=== PATIENT | male | born 1930 | race Caucasian/White ===

== ENCOUNTER 2018-09-13 18:29 | Observation (INO) | payer BC ==
--- NOTE | 2018-09-13 19:17 | PDOC ---
History of Present Illness - General Chief Complaint: Lightheaded Stated Complaint: SENT BY PCP Time Seen by Provider: 09/13/18 18:49 History Source: Patient, Primary Care Provider Exam Limitations: No Limitations - History of Present Illness Initial Comments: 09/13/18 19:12 88M with a PMH of a-fib on coumadin who presents to the ER sent by his on site coordinator, Drs. Mcghee and Kaz, after his holter monitor showed 12 seconds of v-tach. The patient states that he was otherwise in his normal state of health and sitting outside when he felt "a blackness" take over. This happened for "a few seconds" and then went away. He denies feeling palpitations , CP, SOB, nausea, vomiting, diaphoresis during or after this episode. He denies any acute complaints currently. Past History - Past Medical History Allergies/Adverse Reactions: Allergies Allergy/AdvReac Type Severity Reaction Status Date / Time No Known Allergies Allergy Verified 09/13/18 18:37 Home Medications: Ambulatory Orders Warfarin Sodium [Coumadin] 1 mg PO DAILY 12/13/13 Alprazolam [Xanax] 0.25 mg PO BID 09/13/18 Azithromycin [Zithromax -] 250 mg PO DAILY 09/13/18 Metoprolol Succinate [Toprol Xl] 25 mg PO DAILY 09/13/18 Venlafaxine HCl ER [Effexor Xr -] 37.5 mg PO DAILY 09/13/18 Cardiac Disorders: Yes (a-fib) COPD: No HTN: Yes Hypercholesterolemia: Yes - Surgical History Abdominal Surgery: Yes Orthopedic Surgery: Yes (screws in left arm from fALL) - Immunization History Immunization Up to Date: Yes - Suicide/Smoking/Psychosocial Hx Smoking History: Never smoked Have you smoked in the past 12 months: No If you are a former smoker, when did you quit?: 1990 Hx Alcohol Use: Yes Substance Use Type: None Review of Systems - Review of Systems Able to Perform ROS?: Yes Comments:: 09/13/18 19:16 GENERAL/CONSTITUTIONAL: No fever or chills. No weakness. HEAD, EYES, EARS, NOSE AND THROAT: No change in vision. No ear pain or discharge. No sore throat. CARDIOVASCULAR: No chest pain, palpitations, or lightheadedness. RESPIRATORY: No cough, wheezing, shortness of breath, or hemoptysis. GASTROINTESTINAL: No nausea, vomiting, diarrhea, constipation, or abdominal pain. GENITOURINARY: No dysuria, frequency, hematuria, or change in urination. MUSCULOSKELETAL: No joint or muscle swelling or pain. No neck or back pain. SKIN: No rash or lesions. NEUROLOGIC: No headache, numbness, tingling, focal weakness, loss of consciousness, or change in strength/sensation. Is the patient limited Kittitian proficient: No *Physical Exam - Vital Signs Last Vital Signs Temp Pulse Resp BP Pulse Ox 97.2 F L 95 H 18 127/76 99 09/13/18 18:33 09/13/18 18:33 09/13/18 18:33 09/13/18 18:33 09/13/18 18:33 - Physical Exam Comments: 09/13/18 19:16 GENERAL: Well developed, well nourished. Awake and alert. No acute distress. HEENT: Normocephalic, atraumatic. Hearing grossly normal. Moist mucous membranes. PERRLA, EOMI. No conjunctival pallor. Sclera are non-icteric. NECK: Supple. Full ROM. No JVD. CARDIOVASCULAR: Regular rate and rhythm. No murmurs, rubs, or gallops. PULMONARY: No evidence of respiratory distress. Lungs clear to auscultation bilaterally. No wheezing, rales or rhonchi. ABDOMINAL: Soft. Non-tender. Non-distended. No rebound or guarding. GENITOURINARY: No CVA tenderness bilaterally. MUSCULOSKELETAL: Normal range of motion at all joints. No bony deformities or tenderness. EXTREMITIES: No cyanosis. No clubbing. No edema. No calf tenderness or swelling. SKIN: Warm and dry. Normal capillary refill. No rashes. No jaundice. NEUROLOGICAL: Alert, awake, appropriate. Cranial nerves 2-12 grossly intact. Normal speech. Gait is normal without ataxia. PSYCHIATRIC: Cooperative. Good eye contact. Appropriate mood and affect. ED Treatment Course - RADIOLOGY Radiology Studies Ordered: Category Date Time Status CHEST PA & LAT [RAD] Stat Radiology 09/13/18 18:58 Ordered Medical Decision Making - Medical Decision Making 09/13/18 19:16 88M with a PMH of a-fib on coumadin who presents to the ER after his holter monitor showed v-tach and he complained of a "blackness". Pt is currently being worked up for syncope/pre-syncope multiple times over the past month. Pt's cards is Dr. Mccurdy and Dr. Mcghee. PCP is Dr. Sanders. Pending labs and imaging and will likely admit for tele obs.
[2018-09-13 19:41] LABS: BASO % 0.5 % (0-2.0); EOS % 1.1 % (0-4.5); HEMOGLOBIN 13.7 GM/dL (11.7-16.9); LYMPH % 16.8 % (8-40); MCHC 32.5 g/dl (32.0-35.9); MEAN CELL VOLUME 95.4 fl (80-96); MEAN PLT VOLUME 9.8 fl (7.5-11.1); MONO % 10.4 % (3.8-10.2); NEUT % 71.2 % (42.8-82.8); RDW 13.3 % (11.9-15.9)
[2018-09-13 19:46] LABS: WHITE BLOOD COUNT 5.7 K/mm3 (4.0-10.0)
[2018-09-13 20:15] LABS: INR 2.07 (0.83-1.09); PROTHROMBIN TIME (PATIENT) 24.6 SEC (9.7-13.0)
[2018-09-13 20:28] LABS: BASO % 0.5 % (0-2.0); EOS % 1.5 % (0-4.5); HEMATOCRIT 41.1 % (35.4-49); HEMOGLOBIN 13.4 GM/dL (11.7-16.9); LYMPH % 17.7 % (8-40); MCH 31.2 pg (25.7-33.7); MCHC 32.6 g/dl (32.0-35.9); MEAN CELL VOLUME 95.5 fl (80-96); MONO % 10.7 % (3.8-10.2); NEUT % 69.6 % (42.8-82.8); PLATELET COUNT 196 K/MM3 (134-434); RBC 4.31 M/mm3 (4.00-5.60); RDW 13.4 % (11.9-15.9)
[2018-09-13 20:36] LABS: INR 2.09 (0.83-1.09); PROTHROMBIN TIME (PATIENT) 24.8 SEC (9.7-13.0)
[2018-09-13 20:55] LABS: ALBUMIN 3.3 g/dl (3.4-5.0); BILIRUBIN,TOTAL 0.2 mg/dL (0.2-1); CALCIUM 8.3 mg/dL (8.5-10.1); CREATININE 0.9 mg/dL (0.55-1.3); MAGNESIUM 2.3 mg/dL (1.8-2.4); POTASSIUM 4.1 mmol/L (3.5-5.1); TOT PROT 6.2 g/dl (6.4-8.2)
[2018-09-13] MEDS ORDERED: ALPRAZolam 0.25 MG TABLET ONE (22:11)
--- NOTE | 2018-09-13 22:12 | HP ---
CHIEF COMPLAINT: pre-syncope/syncope PCP: Dr. Sanders HISTORY OF PRESENT ILLNESS: This is an 88-year-old male with a history of Atrial fibrillation On Coumadin presenting for a episode of feeling unstable earlier in the day. He reports that he was walking earlier today in his house while cleaning up and felt that he needed to sit down for half a second, reporting that he felt like his vision turned black for a split second. He states that his family called the doctor who reviewed the Holter monitor that he has in place for the last three days and was told to come to the hospital for further evaluation. He reports he got the Holter monitor three days ago because he felt "funny," and was unable to provide any more detailed of a history. He reports this is the third episode where he had this feeling of almost passing out, the first time being two months ago, and the second time around one month ago. He reports he had a cold around three weeks ago but that has since resolved. Patient denies any chest pain, shortness of breath, palpitations, headache, blurry vision, double vision, Abdominal pain, nausea, vomiting, diarrhea. His teacher asst is Dr. Mcghee. ER course was notable for: (1) > BUN/Cre ratio (2) (3) Recent Travel: denies PAST MEDICAL HISTORY: As stated above PAST SURGICAL HISTORY: Multiple joint replacements back in 1990 due to a five- story fall, No other surgeries reported Social History: Smoking: Former smoker quit in 1990, smoked since he was a kid Alcohol: Currently drinks 1-2 glasses of wine every night Drugs: Denies any active drug use Family History: Denies any family history of heart disease, stroke, diabetes, or cancer Allergies No Known Allergies Allergy (Verified 09/13/18 18:37) HOME MEDICATIONS: Home Medications Medication Instructions Recorded Warfarin Sodium [Coumadin] 1 mg PO DAILY 12/13/13 Alprazolam [Xanax] 0.25 mg PO BID 09/13/18 Azithromycin [Zithromax -] 250 mg PO DAILY 09/13/18 Metoprolol Succinate [Toprol Xl] 25 mg PO DAILY 09/13/18 Venlafaxine HCl ER [Effexor Xr -] 37.5 mg PO DAILY 09/13/18 REVIEW OF SYSTEMS CONSTITUTIONAL: Absent: fever, chills, diaphoresis, generalized weakness, malaise, loss of appetite, weight change HEENT: Absent: rhinorrhea, nasal congestion, throat pain, throat swelling, difficulty swallowing, mouth swelling, ear pain, eye pain, visual changes CARDIOVASCULAR: Absent: chest pain, syncope, palpitations, irregular heart rate, lightheadedness , peripheral edema RESPIRATORY: Absent: cough, shortness of breath, dyspnea with exertion, orthopnea, wheezing, stridor, hemoptysis GASTROINTESTINAL: Absent: abdominal pain, abdominal distension, nausea, vomiting, diarrhea, constipation, melena, hematochezia GENITOURINARY: Absent: dysuria, frequency, urgency, hesitancy, hematuria, flank pain, genital pain MUSCULOSKELETAL: Absent: myalgia, arthralgia, joint swelling, back pain, neck pain SKIN: Absent: rash, itching, pallor HEMATOLOGIC/IMMUNOLOGIC: Absent: easy bleeding, easy bruising, lymphadenopathy, frequent infections ENDOCRINE: Absent: unexplained weight gain, unexplained weight loss, heat intolerance, cold intolerance NEUROLOGIC: Absent: headache, focal weakness or paresthesias, dizziness, unsteady gait, seizure, mental status changes, bladder or bowel incontinence PSYCHIATRIC: Absent: anxiety, depression, suicidal or homicidal ideation, hallucinations. PHYSICAL EXAMINATION Vital Signs - 24 hr 09/13/18 18:33 Temperature 97.2 F L Pulse Rate 95 H Respiratory 18 Rate Blood Pressure 127/76 O2 Sat by Pulse 99 Oximetry (%) GENERAL: A&Ox3, no acute distress EYES: PERRLA, EOMI ENT: Moist mucus membranes NECK: No JVD LUNGS: CTA, no wheezes HEART: RRR, no murmurs ABDOMEN: Soft, nontender, BS present MUSCULOSKELETAL: No CVA Tenderness EXTREMITIES: 2+ pulses, no edema. NEUROLOGICAL: Cranial nerves II-XII intact. Laboratory Results - last 24 hr 09/13/18 09/13/18 09/13/18 19:30 19:30 19:30 WBC 5.7 RBC 4.40 Hgb 13.7 Hct 42.0 MCV 95.4 MCH 31.0 MCHC 32.5 RDW 13.3 Plt Count MPV 9.8 Absolute Neuts (auto) 4.0 Neutrophils % 71.2 Lymphocytes % 16.8 Monocytes % 10.4 H Eosinophils % 1.1 Basophils % 0.5 D Nucleated RBC % 0 PT with INR 24.60 H INR 2.07 H Sodium Cancelled Potassium Cancelled Chloride Cancelled Carbon Dioxide Cancelled Anion Gap Cancelled BUN Cancelled Creatinine Cancelled Est GFR (CKD-EPI)AfAm Cancelled Est GFR (CKD-EPI)NonAf Cancelled Random Glucose Cancelled Calcium Cancelled Magnesium Cancelled Total Bilirubin Cancelled AST Cancelled ALT Cancelled Alkaline Phosphatase Cancelled Creatine Kinase Cancelled Troponin I Cancelled Total Protein Cancelled Albumin Cancelled 09/13/18 09/13/18 09/13/18 20:15 20:15 20:15 WBC 5.0 RBC 4.31 Hgb 13.4 Hct 41.1 MCV 95.5 MCH 31.2 MCHC 32.6 RDW 13.4 Plt Count 196 MPV 9.0 Absolute Neuts (auto) 3.5 Neutrophils % 69.6 Lymphocytes % 17.7 Monocytes % 10.7 H Eosinophils % 1.5 Basophils % 0.5 Nucleated RBC % 0 PT with INR 24.80 H INR 2.09 H Sodium 141 Potassium 4.1 Chloride 108 H Carbon Dioxide 26 Anion Gap 7 L BUN 25 H Creatinine 0.9 Est GFR (CKD-EPI)AfAm 88.69 Est GFR (CKD-EPI)NonAf 76.52 Random Glucose 91 Calcium 8.3 L Magnesium 2.3 Total Bilirubin 0.2 AST 14 L ALT 19 Alkaline Phosphatase 48 Creatine Kinase 38 Troponin I 0.03 Total Protein 6.2 L Albumin 3.3 L ASSESSMENT/PLAN: 88-year-old male with a history of Atrial fibrillation On Coumadin presenting for a episode of feeling unstable earlier in the day And is admitted for the evaluation and management of possible syncopal episode. #Pre- Syncopal episode: According to the ED,Patient had a run of Vtach on Holter monitor. Will admit for 24 hour telemetry monitoring and cardiac evaluation. -tele 24 hours -Last echocardiogram. Was many years ago in our system, likely had one as an outpatient, will obtain new echo. -Will obtain carotid Doppler, to evaluate carotid stenosis In the setting of a presyncopal episode -Cardiology consult, Dr. Mcghee #Atrial Fibrillation: Patient is currently rate controlled -Continue warfarin 1 mg daily -Continue metoprolol succinate 25 mg PO daily #Anxiety: Chronic in nature -Continue Xanax and then venlafaxine as per home dose #FEN -Will give one leader of normal saline due to >BUN/Cre ratio -Electrolytes are within normal limits, evaluate in the morning -Cholesterol controlled diet #Prophylaxis -Continue home dose of warfarin #Disposition -Admit Tele obs
[2018-09-13] MEDS: ALPRAZolam 0.25 MG TABLET PO SCH (22:13)
--- NOTE | 2018-09-13 22:47 | PN ---
Teaching Attending Note Name of Resident: Rober Alonso ATTENDING PHYSICIAN STATEMENT I saw and evaluated the patient. I reviewed the resident's note and discussed the case with the resident. I agree with the resident's findings and plan as documented. SUBJECTIVE: OBJECTIVE: s1 and s2 rrr lungs CTA abdomen soft non-tender no edema PERRLA ASSESSMENT AND PLAN: This is an 88-year-old male with a history of Atrial fibrillation rate control and warfarin admitted for evaluation of syncope patient stated that he was referred from his automotive heavy mechanic for a questionable Non-sustained VT episode on his home monitor #Pre- Syncopal episode: Will admit for 24 hour telemetry monitoring and cardiac evaluation. -tele 24 hours -cardiology consult - obtain echocardiogram - obtain doppler of the carotid #Atrial Fibrillation: Patient is currently rate controlled -Continue warfarin 1 mg daily -Continue metoprolol succinate 25 mg PO daily #Anxiety: Chronic in nature -Continue alprazolam prn - venlafaxine as per home dose #Prophylaxis -Continue home dose of warfarin
--- NOTE | 2018-09-13 22:55 | PDOC ---
Documentation entered by Guillermo Cardona SCRIBE, acting as scribe for Franny Grant MD. Franny Grant MD: This documentation has been prepared by the Dulce dacosta Nirvannie, SCRIBE, under my direction and personally reviewed by me in its entirety. I confirm that the documentation accurately reflects all work, treatment, procedures, and medical decision making performed by me. Attending Attestation - Resident Resident Name: SalvatoreanaisFroilan farias - ED Attending Attestation I have performed the following: I have examined & evaluated the patient, The case was reviewed & discussed with the resident, I agree w/resident's findings & plan - HPI HPI: 09/13/18 19:38 The patient is a year old male, with a significant past medical history of Afib , HLD, who was sent to the emergency department by his commercial administrator secondary to holter monitor depicting 12 seconds of v-tach. As per patient, he experienced a few seconds of blackness, which has since resolved. He denies any recent fevers, chills, headache or dizziness. He denies any recent nausea, vomit, diarrhea or constipation. He denies any recent chest pain or shortness of breath. He denies any recent dysuria, frequency, urgency or hematuria. Allergies: NKDA Primary Care Physician: Dr. Sanders - Physicial Exam PE: 09/13/18 20:10 88 yo male in on acute distress head ncat eyes timothy eomi neck no jvd,no bruits lungs cta b/l cvs [id number] abd nontender,no rebound extremities no edema skin warm and dry neuro axox3, ambulatory psych appropriate - Medical Decision Making 09/13/18 19:38 This 88 yo male was referred to the Ed by commercial administrator Dr Tanner for admission to telemetry after his holter monitor revealed a 12 s run of VTACH. He has been on the holter monitor for syncope This pt has a history of AFIB and has recently stopped his beta blockers and he has been taking zithromax 09/13/18 20:11 pt had a near syncopal episode with VTACH on holter monitor plan telemetry obs
[2018-09-13] MEDS ORDERED: SODIUM CHLORIDE 1,000 ML IV SCH (23:15)
[2018-09-14 02:13] VITALS: BMI 31.4
[2018-09-14 05:57] LABS: HEMATOCRIT 38.3 % (35.4-49); HEMOGLOBIN 12.6 GM/dL (11.7-16.9); MCH 31.4 pg (25.7-33.7); MCHC 32.9 g/dl (32.0-35.9); MEAN CELL VOLUME 95.4 fl (80-96); MEAN PLT VOLUME 9.1 fl (7.5-11.1); PLATELET COUNT 184 K/MM3 (134-434); RBC 4.01 M/mm3 (4.00-5.60); RDW 13.2 % (11.9-15.9); WHITE BLOOD COUNT 3.9 K/mm3 (4.0-10.0)
[2018-09-14 06:23] LABS: CALCIUM 7.9 mg/dL (8.5-10.1); CREATININE 0.8 mg/dL (0.55-1.3); MAGNESIUM 2.1 mg/dL (1.8-2.4); PHOSPHOROUS 3.3 mg/dL (2.5-4.9); POTASSIUM 4.4 mmol/L (3.5-5.1)
--- NOTE | 2018-09-14 08:25 | PN ---
Progress Note, Physician Chief Complaint: Mr Emery is without complaint today. Denies lightheadedness, dizziness, cp, sob, n/v. Says episode yesterday lasted for "a split second" and then resolved. - Current Medication List Current Medications: Active Medications Alprazolam (Xanax -) 0.25 mg PO BID [facility] Last Admin: 09/13/18 22:13 Dose: 0.25 mg Metoprolol Succinate (Toprol Xl -) 25 mg PO DAILY [facility] Venlafaxine HCl (Effexor Xr -) 37.5 mg PO DAILY [facility] Warfarin Sodium (Coumadin -) 1 mg PO DAILY@1800 [facility] - Objective Vital Signs: Vital Signs Temperature 36.3 C L 09/14/18 02:00 Pulse Rate 62 09/14/18 03:00 Respiratory Rate 18 09/14/18 03:00 Blood Pressure 118/66 09/14/18 03:00 O2 Sat by Pulse Oximetry (%) 99 09/13/18 23:10 Constitutional: Yes: Well Nourished, No Distress, Calm Cardiovascular: Yes: Regular Rate and Rhythm. No: Gallop, Murmur, Rub Respiratory: Yes: Regular, CTA Bilaterally. No: Rales, Rhonchi, Wheezes Gastrointestinal: Yes: Normal Bowel Sounds, Soft. No: Distention, Tenderness Extremities: Yes: WNL Edema: No Labs: CBC, BMP 09/14/18 05:15 09/14/18 05:15 INR, PTT INR 2.09 (0.83-1.09) H 09/13/18 20:15 Problem List - Problems (1) Pre-syncope Assessment/Plan: -patient with split second of pre-syncope -per notes, had arrhythmia on Holter monitor -resolved immediately and did not have syncope -ECHO and carotid ultrasound done, awaiting reads -will check orthostatics -stop IVF, not indicated -cardiology consulted -in sinus rhythm here on telemetry -will d/w cardiology if Holter results are significant Code(s): R55 - SYNCOPE AND COLLAPSE (2) Non-sustained ventricular tachycardia Assessment/Plan: -noted was present on Holter monitor as an outpatient -cardiology consulted -will d/w cardiology significance and what further testing intervention is indicated Code(s): I47.2 - VENTRICULAR TACHYCARDIA (3) Afib Assessment/Plan: -continue toprol xl and coumadin -currently sinus rhythm Code(s): I48.91 - UNSPECIFIED ATRIAL FIBRILLATION Qualifiers: Atrial fibrillation type: paroxysmal Qualified Code(s): I48.0 - Paroxysmal atrial fibrillation (4) Anxiety Assessment/Plan: -continue home regimen of venlafaxine and alprazolam Code(s): F41.9 - ANXIETY DISORDER, UNSPECIFIED
--- NOTE | 2018-09-14 08:52 | CON.CARD ---
Consult Consult Specialty:: cardio - History of Present Illness Chief Complaint: presyncope History of Present Illness: 88 M here with lightheadedness/presyncope. Pt wearing event monitor at home, yesterday was walking when felt fleeting ( seconds duration) of malaise, LH, darkening vision. Per Dr Mccurdy, event monitor notification at that time showed 15 seconds of wide complex tachycardia suspicious for VT. pt follows with dr mccarthy. has had 3 prior episodes of identical sx's. never with actual syncope. all episodes occurred while in standing position. last time was few weeks ago-- AT THE TIME HE WAS COMPLETING HIS EXERCISE AT [employer] AND WAS STARTING TO SLOW DOWN B/C TIME OF SESSION WAS ALMOST UP, BUT HAD NOT YET STOPPED CYCLING ON STA BIKE WHEN HE FELT THE SX'S. again those sx's lasted seconds--felt fine in USOH--went home. EF normal 02/12. per dtr (who is PATTERN DATA OPERATOR that works with EP at [facility]), pt was taking metoprolol succ 25 qd previously--INCLUDING AT TIME OF LAST PRESYNCOPE EPISODE. med was stopped at that time due to concerns over orthostasis/vasovagal. completed z-maria teresa recently. QT normal here no R on T initiating event at time of VT on monitor pt is active and walks without chest pain ever, no sob. PMH: afib - Past Medical History Cardio/Vascular: Yes: AFIB Pulmonary: Yes: Bronchitis Gastrointestinal: Yes: Gastritis - Alcohol/Substance Use Hx Alcohol Use: Yes - Smoking History Smoking history: Never smoked Have you smoked in the past 12 months: No If you are a former smoker, when did you quit?: 1990 - Social History Occupation: Retired construction, Home Medications - Allergies Allergies/Adverse Reactions: Allergies Allergy/AdvReac Type Severity Reaction Status Date / Time No Known Allergies Allergy Verified 09/13/18 18:37 - Home Medications Home Medications: Ambulatory Orders Warfarin Sodium [Coumadin] 1 mg PO DAILY 12/13/13 Alprazolam [Xanax] 0.25 mg PO BID 09/13/18 Azithromycin [Zithromax -] 250 mg PO DAILY 09/13/18 Metoprolol Succinate [Toprol Xl] 25 mg PO DAILY 09/13/18 Venlafaxine HCl ER [Effexor Xr -] 37.5 mg PO DAILY 09/13/18 Review of Systems - Review of Systems Constitutional: denies: Chills, Fever Eyes: denies: Eye Pain HENT: denies: Nasal Congestion Neck: denies: Stiffness Cardiovascular: denies: Palpitations Respiratory: denies: Orthopnea, PND Gastrointestinal: denies: Diarrhea, Rectal Bleeding Genitourinary: denies: Burning, Hematuria Musculoskeletal: denies: Muscle Pain Integumentary: denies: Rash Neurological: denies: Numbness, Seizure, Syncope Endocrine: denies: Excessive Sweating Hematology/Lymphatic: denies: Excessive Bleeding Vital Signs: Vital Signs Temperature 97.4 F L 09/14/18 02:00 Pulse Rate 62 09/14/18 03:00 Respiratory Rate 18 09/14/18 03:00 Blood Pressure 118/66 09/14/18 03:00 O2 Sat by Pulse Oximetry (%) 99 09/13/18 23:10 Constitutional: Yes: Well Nourished, No Distress Eyes: No: Sclera Icterus HENT: No: Nasal Congestion Neck: No: Decreased ROM Respiratory: Yes: CTA Bilaterally. No: Accessory Muscle Use, Rales, Wheezes Gastrointestinal: Yes: Normal Bowel Sounds. No: Distention, Hepatomegaly, Palpable Mass, Tenderness Cardiovascular: Yes: Regular Rate and Rhythm JVD: No Carotid Bruit: No PMI: Non-Displaced Heart Sounds: Yes: S1, S2. No: Gallop Murmur: No: Systolic Murmur, Diastolic Murmur Musculoskeletal: Yes: Other (No kyphosis) Extremities: No: Cool, Cyanosis Edema: No Peripheral Pulses: 2+ Left Carotid, 2+ Right Carotid, 2+ Left Doralis Pedis, 2+ Right Dorsalis Pedis Integumentary: No: Jaundice Neurological: Yes: Alert, Oriented (x3) Psychiatric: No: Agitated - Other Data Labs, Other Data: CBC, BMP 09/14/18 05:15 09/14/18 05:15 INR, PTT INR 2.09 (0.83-1.09) H 09/13/18 20:15 Troponin, BNP 09/13/18 09/13/18 19:30 20:15 Troponin I Cancelled 0.03 Troponin, BNP 09/13/18 09/13/18 19:30 20:15 Troponin I Cancelled 0.03 Laboratory Tests 09/13/18 09/13/18 09/13/18 19:30 20:15 20:15 WBC Hgb Plt Count INR 2.07 H 2.09 H Sodium Potassium Carbon Dioxide BUN Creatinine AST 14 L ALT 19 TSH 09/14/18 09/14/18 05:15 05:15 WBC 3.9 L Hgb 12.6 Plt Count 184 INR Sodium 144 Potassium 4.4 Carbon Dioxide 29 BUN 20 H Creatinine 0.8 AST ALT TSH 1.14 Assessment/Plan ECG: NSR, LAFB, possible old ASMI, no ST-T abn. normal intervals including QT-- no signif change vs prior 2015 CXR: clear lungs/pleura Echo 02/12: nl LV/RV size and fxn. LA sev dilated. mild AI. pharm MPI 2011: no STs. nl perfusion. (remote LHC at [facility]: nonobstructive dz) tele: NSVT 17b, 4b symptomatic VTach (nonsustained): -recent h/o presyncope upon completing exercise routine at home. -prior EF nl 02/12, no signif valvular disease, normal RV as well. -K/Mg/Ca all unremarkable. TSH normal. -normal QT interval on ECG -no sx's of acute ischemic heart dz, non-ischemic ECG, troponin neg x 1--will be repeated -? outflow tract VT--need 12 lead ECG at time of VT (or PVCs) to make this diagnosis, or EP study -pt will need transfer to tertiary center EP service, likely to need cath and then EPS with possible ablation. d/w'd dtr with pt's permission, as she is PATTERN DATA OPERATOR in EP at [place]. they request we forward her the strips for her to review with her team and they will discuss amongst themselves where they would like to initiate the transfer -echo today for repeat EF -resume metoprolol: try 25 bid as he had an episode on 25 qd (resting bp/hr may not tolerate 50 qd) Afib: -cont home metoprolol rate control -on warfarin, INR therapeutic--same plan
[2018-09-14] MEDS ORDERED: metoPROLOL SUCCINATE 25 MG TAB.SR.24H (FP) PO SCH ×2 (10:00→22:00)
[2018-09-14] MEDS ORDERED: VENLAFAXINE HCL 37.5 MG E.R. CAPSULE (FP) PO SCH (10:00)
[2018-09-14] MEDS ORDERED: PT OWN MED DRAWER 7, Y5N ONE ×2 (10:17→18:07)
[2018-09-14] MEDS: ALPRAZolam 0.25 MG TABLET PO SCH ×2 (10:44→21:06)
--- NOTE | 2018-09-14 11:03 | EKG ---
Test Reason : Blood Pressure : / mmHG Vent. Rate : 063 BPM Atrial Rate : 063 BPM P-R Int : 158 ms QRS Dur : 078 ms QT Int : 400 ms P-R-T Axes : 082 -44 008 degrees QTc Int : 409 ms NORMAL SINUS RHYTHM WITH SINUS ARRHYTHMIA LEFT AXIS DEVIATION INFERIOR INFARCT , AGE UNDETERMINED ANTERIOR INFARCT , AGE UNDETERMINED ABNORMAL ECG WHEN COMPARED WITH ECG OF 22-JAN-2016 15:26, NO SIGNIFICANT CHANGE WAS FOUND Confirmed by PATIENCE LARIOS, TOBIAS ([id number]) on 09/14/2018 11:03:03 AM Referred By: Confirmed By:TOBIAS MORIN MD
--- NOTE | 2018-09-14 12:28 | ECHO ---
Name: CARLOS REYES Exam:Adult Echocardiogram Study Date: 09/14/2018 07:58 AM Age: 88 yrs Reason For Study: SYNCOPE Height: 65 in Weight: 199 lb BSA: 2.0 m2 BP: 125/61 mmHg MMode/2D Measurements & Calculations IVSd: 1.0 cm Ao root diam: 3.8 cm LVIDd: 4.5 cm LVIDs: 2.9 cm LVPWd: 1.1 cm EDV(Teich): 93.0 ml LVOT diam: 2.1 cm ESV(Teich): 32.6 ml Doppler Measurements & Calculations MV E max ranulfo: 58.7 cm/sec Ao V2 max: 120.8 cm/sec MV A max ranulfo: 75.5 cm/sec Ao max P.8 mmHg MV E/A: 0.78 Ao V2 mean: 82.1 cm/sec MV dec time: 0.29 sec Ao mean P.0 mmHg Ao V2 VTI: 26.0 cm Med Peak E' Ranulfo: 4.9 cm/sec Med E/e': 11.9 Lat Peak E' Ranulfo: 8.1 cm/sec Lat E/e': 7.2 Procedure The study was technically adequate with some images being suboptimal in quality. Left Ventricle The left ventricular size, thickness and function are normal. Ejection Fraction = 60-65%. The transmi tral spectral Doppler flow pattern is normal for age. Right Ventricle The right ventricle is normal in size and function. Atria The left atrium is moderately dilated. The right atrium is borderline dilated. Mitral Valve The mitral valve is grossly normal. There is trace to mild mitral regurgitation. Tricuspid Valve The tricuspid valve is not well visualized, but is grossly normal. There is trace tricuspid regurgita tion. There was insufficient TR detected to calculate RV systolic pressure. Aortic Valve The aortic valve opens well. There is mild aortic sclerosis.;. The aortic valve is trileaflet. Trace to mild aortic regurgitation. Pulmonic Valve The pulmonic valve is not well visualized. There is no pulmonic valvular regurgitation. Great Vessels Borderline aortic root dilatation. Pericardium/Pleura There is no pericardial effusion. Interpretation Summary In comparison to previous study performed 01/2018, no significant change. The left ventricular size, thickness and function are normal The right ventricle is normal in size and function. Borderline aortic root dilatation. Ejection Fraction = 60-65%. There is trace tricuspid regurgitation. The transmitral spectral Doppler flow pattern is normal for age. The right atrium is borderline dilated. In comparison to previous study performed 01/2018, no significant change. The left atrium is moderately dilated. Froilan Garcia MD 09/14/2018 12:27 PM
[2018-09-14 16:40] VITALS: TEMP 97.7
[2018-09-14] MEDS ORDERED: WARFARIN NA 1 MG TABLET (FP) PO SCH (18:00)
[2018-09-15 00:07] VITALS: BP 124/62; PULSE 67
--- NOTE | 2018-09-17 13:12 | EKG ---
Test Reason : Blood Pressure : / mmHG Vent. 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
== END 2018-09-15 01:10 | disposition short-term general hospital (02) ==
LOC: JER 18:29 → JERBED 20:47 → J2W 09-14 02:24
PROVIDERS: ADMIT Internal Medicine; ATTEND Internal Medicine
PROC: 3E0337Z Introduction of Electrolytic and Water Balance Substance into Peripheral Vein, Percutaneous Approach (ICD-10-PCS; principal; 2018-09-13)
DX: R55 Syncope and collapse (principal); F41.9 Anxiety disorder, unspecified; I47.2 Ventricular tachycardia; I48.0 Paroxysmal atrial fibrillation; E78.5 Hyperlipidemia, unspecified
CPT/HCPCS: 36415; 71046-TC-FY; 80048; 80053; 82550; 83036; 83735; 84100; 84443; 84484; 85025; 85027; 85610; 93005; 93010; 93306-TC; 93880-TC; 99282-25; G0378; J7030